=== PATIENT | female | born 1940 | race Caucasian/White ===

== ENCOUNTER 2017-06-26 19:36 | Emergency (ER) | payer MEDICARE, MEDICAID ==
[~2017-06-26] VITALS: Ht 162.6 cm; Wt 65.5 kg
[2017-06-26 19:39] VITALS: Ht 162.6 cm; Wt 65.5 kg
[2017-06-26] MEDS ORDERED: SOD CHLORIDE 0.9% 1,000 ML IV STA (20:55)
[2017-06-26] MEDS ORDERED: LORAZEPAM 2 MG INJ IV ONE (21:00)
[2017-06-26 21:22] LABS: ADD UMIC YES; UR ASCORBIC ACID NEGATIVE (NEGATIVE); UR BILIRUBIN (Dip) NEGATIVE (NEGATIVE); UR BLOOD (Dip) NEGATIVE (NEGATIVE); UR CLARITY CLEAR (CLEAR); UR COLOR STRAW (YELLOW); UR GLUCOSE (Dip) NEGATIVE (NEGATIVE); UR KETONES (Dip) NEGATIVE (NEGATIVE); UR LEUKOCYTE ESTERASE (Dip) 1+ Leu/ul (NEGATIVE); UR NITRITE (Dip) NEGATIVE (NEGATIVE); UR RBC 1 /HPF (0-5); UR SPECIFIC GRAVITY (Dip) 1.005 (1.003-1.030); UR SQUAMOUS EPITHELIAL CELL FEW /HPF (FEW); UR TOTAL PROTEIN (Dip) NEGATIVE (NEGATIVE); UR UROBILINOGEN (Dip) NEGATIVE (NEGATIVE)
--- NOTE | 2017-06-26 22:01 | RADRPT ---
PROCEDURE: XR Chest. CLINICAL INDICATION: Altered level of consciousness TECHNIQUE: AP Portable chest. COMPARISON: No pertinent prior examinations were submitted for comparison. FINDINGS: There is moderate cardiomegaly. Prior median sternotomy is impaired left chest cardiac device and l shawna are noted. The lungs are clear. The osseous structures are unremarkable. IMPRESSION: No acute findings. RPTAT: HIKT .Edson Granados MD, MD Date Time Electronically viewed and signed by .Edson Granados MD, MD on 06/26/2017 22:01 .T/
--- NOTE | 2017-06-26 22:15 | ERD ---
ER Documentation Chief Complaint Date/Time DATE: 06/26/17 TIME: 22:08 Chief Complaint psychiatric evaluation talking non stop, sp fall yesterday L shoulder pain HPI 76-year-old woman brought in by family members for 3 days of agitation and hyper -verbosity. Patient does have a history of manic bipolar disorder and family suspects she is having an episode. She has had difficulty using her walker for the last 3 days and has had constant falls although there has been no head or neck injury. She has had no loss of consciousness, no fevers or chills, no vomiting or diarrhea. Patient denies chest pain or shortness of breath. ROS All systems reviewed and are negative except as per history of present illness. Medications Home Meds Reported Medications Levothyroxine Sodium* (Levothyroxine Sodium*) 25 Mcg Tablet, 25 MCG PO BEFORE BREAKFAST, #30 TAB 06/27/17 Bumetanide* (Bumetanide*) 1 Mg Tablet, 1 MG PO DAILY, TAB 06/27/17 Potassium Chloride* (K-Dur*) 10 Meq Tab.prt.sr, 10 MEQ PO DAILY, TAB 06/27/17 Warfarin Sodium* (Coumadin*) 1 Mg Tablet, 0.5 MG PO DAILY, TAB 06/27/17 Citalopram Hydrobromide* (Citalopram Hydrobromide*) 10 Mg Tablet, 10 MG PO DAILY , #30 TAB 06/27/17 Atenolol* (Atenolol*) 25 Mg Tablet, 25 MG PO BID, #60 TAB 06/27/17 Famotidine* (Famotidine*) 20 Mg Tablet, 20 MG PO BID, #60 TAB 06/27/17 Zolpidem Tartrate* (Zolpidem Tartrate*) 10 Mg Tablet, 10 MG PO QHS Y for INSOMNIA, #30 TAB 06/27/17 Tramadol Hcl* (Ultram*) 50 Mg Tablet, 50 MG PO Q6H Y for PAIN, TAB 06/27/17 Allergies Allergies: Coded Allergies: diclofenac (Unverified Allergy, Unknown, 06/27/17) morphine (Unverified Allergy, Unknown, 06/27/17) PMhx/Soc Bipolar disorder with previous psychiatric hospitalizations, hypertension, arthritis History of Surgery: Yes (left shoulder replacement) Anesthesia Reaction: Yes Hx Neurological Disorder: No Hx Respiratory Disorders: No Hx Cardiac Disorders: Yes Hx Psychiatric Problems: Yes Hx Miscellaneous Medical Probl: No Hx Alcohol Use: No Hx Substance Use: No Hx Tobacco Use: No Smoking Status: Never smoker FmHx Family History: No diabetes Physical Exam Vitals Vital Signs Date Time Temp Pulse Resp B/P Pulse Ox O2 Delivery O2 Flow Rate FiO2 06/27/17 13:09 98.9 68 18 118/69 100 Room Air 06/27/17 08:30 71 18 122/71 100 Room Air 06/27/17 06:30 78 18 118/71 98 Room Air 06/27/17 03:51 75 16 112/75 97 Room Air 06/27/17 00:48 98.8 75 20 122/78 100 Room Air 06/26/17 20:43 98.8 89 20 129/81 100 Room Air 06/26/17 19:39 99.0 75 20 121/65 100 Physical Exam GENERAL: Well-developed, well-nourished, appears dehydrated, afebrile HEENT: Dry mucous membranes, pink conjunctiva, no cervical spine tenderness or step-off deformities, no goiter, no jaundice or icterus, extraocular movements intact without pain. NEURO: Alert and oriented 3, cranial nerves II through XII intact bilaterally, pupils equal round reactive to light, no focal deficits or facial asymmetry, sensation intact distally Strength 5/5 in upper and lower extremities bilaterally CARDIAC: Regular rate and rhythm, no murmurs rubs or gallops LUNGS: Clear bilaterally no wheezing crackles or stridor ABDOMEN: Soft nontender, no guarding, no rigidity, no rebound, no psoas sign no obturator sign. Normoactive bowel sounds SKIN: Warm and dry to touch, no abrasions, contusions, or hematomas, no lacerations, no ecchymosis, no target lesions, and without ulcers EXTREMITIES: No clubbing cyanosis or edema, calves are bilaterally symmetrical, no Homans sign, no popliteal cord sign. Distal pulses equal and bilateral PSYCH: Agitated Result Diagram: 06/26/17221206/26/172212 Results 24 hrs Laboratory Tests Test 06/26/17 20:30 06/26/17 22:13 Urine Color STRAW Urine Clarity CLEAR Urine pH 5.0 Urine Specific [place] 1.005 Urine Ketones NEGATIVEmg/dL Urine Nitrite NEGATIVEmg/dL Urine Bilirubin NEGATIVEmg/dL Urine Urobilinogen NEGATIVEmg/dL Urine Leukocyte Esterase 1+Vandana/ul Urine Microscopic RBC 1/HPF Urine Microscopic WBC 2/HPF Urine Squamous Epithelial Cells FEW/HPF Urine Hemoglobin NEGATIVEmg/dL Urine Glucose NEGATIVEmg/dL Urine Total Protein NEGATIVEmg/dl White Blood Count 7.310^3/ul Red Blood Count 3.8310^6/ul Hemoglobin 11.5g/dl Hematocrit 34.2% Mean Corpuscular Volume 89.3fl Mean Corpuscular Hemoglobin 30.0pg Mean Corpuscular Hemoglobin Concent 33.6g/dl Red Cell Distribution Width 13.6% Platelet Count 81867^3/UL Mean Platelet Volume 10.6fl Neutrophils % 77.3% Lymphocytes % 12.4% Monocytes % 7.4% Eosinophils % 2.3% Basophils % 0.1% Nucleated Red Blood Cells % 0.0/100WBC Neutrophils # 5.710^3/ul Lymphocytes # 0.910^3/ul Monocytes # 0.510^3/ul Eosinophils # 0.210^3/ul Basophils # 0.010^3/ul Nucleated Red Blood Cells # 0.010^3/ul Sodium Level 132mmol/L Potassium Level 4.1mmol/L Chloride Level 96mmol/L Carbon Dioxide Level 26mmol/L Anion Gap 14 Blood Urea Nitrogen 14mg/dl Creatinine 0.75mg/dl Glucose Level 81mg/dl Calcium Level 9.2mg/dl Total Bilirubin 1.1mg/dl Direct Bilirubin 0.00mg/dl Indirect Bilirubin 1.1mg/dl Aspartate Amino Transf (AST/SGOT) 38IU/L Alanine Aminotransferase (ALT/SGPT) 25IU/L Alkaline Phosphatase 184IU/L Troponin I 0.016ng/ml Total Protein 8.1g/dl Albumin 4.6g/dl Globulin 3.50g/dl Albumin/Globulin Ratio 1.31 Lipase 34U/L Salicylates Level < 1.0mg/dl Acetaminophen Level < 10.0ug/ml Ethyl Alcohol Level < 10.0mg/dl Current Medications Medications (Trade) Dose Ordered Sig/Sabrina Route PRN Reason Start Time Stop Time Status Last Admin Dose Admin Lorazepam 1 mg 1 mg ONCE ONCE IV 06/26/17 21:00 06/26/17 21:01 DC 06/26/17 21:00 Sodium Chloride (NS) 1,000 ml @ 1,000 mls/hr Q1H STAT IV 06/26/17 20:55 06/26/17 21:54 DC 06/26/17 20:55 Cephalexin (Keflex) 500 mg ONCE ONCE PO 06/26/17 22:30 06/26/17 22:31 DC 06/26/17 22:30 Haloperidol (Haldol) 5 mg ONCE ONCE IM 06/26/17 23:30 06/26/17 23:53 DC 06/27/17 00:11 Procedures/MDM IV line was established patient was placed on supervisor central supply rhythm strip revealed a sinus rhythm at about 80 bpm. Patient was afebrile. For dehydration I administered 1 L normal saline and venously and she received lorazepam 1 mg IV for agitation. Urine analysis concerning for urinary tract infection I treated her here with cephalexin 500 mg p.o. 1. One AP view of the chest performed, read by me reveals no acute infiltrates, normal mediastinum, sharp costophrenic and cardiac borders, no air under the diaphragm. Otherwise unremarkable chest x-ray. EKG performed, read by me revealed a paced rhythm at 75 bpm, right axis deviation and a bundle branch block at 160 ms with prolonged QT of [address] elevations or depressions noted. Alcohol, Tylenol, aspirin levels were negative. CBC and electrolytes were normal, liver function tests normal, troponin negative. Patient's behavioral symptoms have stabilized while in the department. Patient is medically cleared and appropriate for psychiatric evaluation and work up. No e/o neurologic, toxic, infectious, or metabolic cause. Differential diagnoses considered, included but not limited to acute coronary syndrome, pulmonary embolism, aortic dissection, abdominal aortic aneurysm, sepsis, stroke, meningitis, encephalitis, pneumonia, appendicitis, cholecystitis , bowel obstruction, pyelonephritis, nephrolithiasis, cystitis, as well as metabolic, hematologic, and electrolyte abnormalities. As well as abscess, cellulitis, fractures, and dislocations. Departure Diagnosis: Primary Impression: Bipolar disorder with severe lyric Additional Impressions: Dehydration UTI (urinary tract infection) Urinary tract infection type: acute cystitis Hematuria presence: without hematuria Qualified Code: N30.00 - Acute cystitis without hematuria Condition: Stable LEON ADAMS MD Jun 26, 2017 22:15
[2017-06-26] MEDS ORDERED: CEPHALEXIN 500 MG CAP PO ONE (22:30)
[2017-06-26 22:51] LABS: BASOPHILS % 0.1 % (0.0-2.0); EOSINOPHILS # 0.2 10^3/ul (0.0-0.5); EOSINOPHILS % 2.3 % (0.0-7.0); HEMATOCRIT 34.2 % (37.0-47.0); HEMOGLOBIN 11.5 g/dl (12.0-16.0); LYMPHOCYTES # 0.9 10^3/ul (0.8-2.9); LYMPHOCYTES % 12.4 % (15.0-51.0); MEAN CORPUSCULAR HGB CONC 33.6 g/dl (32.0-37.0); MEAN CORPUSCULAR VOLUME 89.3 fl (82.0-101.0); MEAN PLATELET VOLUME 10.6 fl (7.4-10.4); MONOCYTE # 0.5 10^3/ul (0.3-0.9); MONOCYTES % 7.4 % (0.0-11.0); NEUTROPHIL # 5.7 10^3/ul (1.6-7.5); NEUTROPHILS % 77.3 % (39.0-77.0); PLATELET COUNT 176 10^3/UL (140-415); RED BLOOD COUNT 3.83 10^6/ul (4.20-5.40); RED CELL DISTRIBUTION WIDTH 13.6 % (11.5-14.5); WHITE BLOOD COUNT 7.3 10^3/ul (4.8-10.8)
[2017-06-26 23:28] LABS: ALANINE AMINOTRANSFERASE 25 IU/L (13-69); ALBUMIN 4.6 g/dl (3.3-4.9); ALBUMIN/GLOBULIN RATIO 1.31; ALKALINE PHOSPHATASE 184 IU/L (42-121); ANION GAP 14 (8-16); ASPARTATE AMINO TRANSFERASE 38 IU/L (15-46); BILIRUBIN,INDIRECT 1.1 mg/dl (0-1.1); BILIRUBIN,TOTAL 1.1 mg/dl (0.2-1.3); BLOOD UREA NITROGEN 14 mg/dl (7-20); CALCIUM 9.2 mg/dl (8.4-10.2); CARBON DIOXIDE 26 mmol/L (21-31); CHLORIDE 96 mmol/L (97-110); CREATININE 0.75 mg/dl (0.44-1.00); GLUCOSE 81 mg/dl (70-220); POTASSIUM 4.1 mmol/L (3.5-5.1); SODIUM 132 mmol/L (135-144); TOTAL PROTEIN 8.1 g/dl (6.1-8.1)
[2017-06-26] MEDS ORDERED: HALOPERIDOL 5 MG INJ IM ONE (23:30)
[2017-06-26 23:32] LABS: ACETAMINOPHEN < 10.0 ug/ml (10.0-30.0); SALICYLATE < 1.0 mg/dl (5.0-30.0)
[2017-06-26 23:33] LABS: ETHANOL < 10.0 mg/dl
[2017-06-26 23:37] LABS: TROPONIN-I 0.016 ng/ml (0.00-0.12)
[2017-06-27] MEDS ORDERED: FAMO20TA18 PO (00:31)
[2017-06-27] MEDS ORDERED: ZOLP10TA5 PO (00:31)
[2017-06-27] MEDS ORDERED: WARF1TAB47 PO (00:31)
[2017-06-27] MEDS ORDERED: TRAM-40 PO (00:31)
[2017-06-27] MEDS ORDERED: CITA10TA84 PO (00:31)
[2017-06-27] MEDS ORDERED: BUME1TAB18 PO (00:31)
[2017-06-27] MEDS ORDERED: ATEN-51 PO (00:31)
[2017-06-27] MEDS ORDERED: LEVO25TA53 PO (00:31)
[2017-06-27] MEDS ORDERED: POTA10TA37 PO (00:31)
--- NOTE | 2017-06-27 12:40 | EN ---
Date/Time of Note Date/Time of Note DATE: 06/27/17 TIME: 12:39 Event Note Medicine Medicine Event Note Patient was evaluated by telemetry psych. The patient has been cleared for discharge home with the family. The family states they are going to take the patient to a palpation or try to get him into another inpatient facility. Patient is cleared for discharge home by psychiatry LM MEZA DO Jun 27, 2017 12:40
[2017-06-27 13:09] VITALS: BP 118/69; PULSE 68; RESP 18; TEMP 98.9
== END 2017-06-27 13:10 | disposition home or self-care (01) ==
LOC: E/R 19:36
DX: F31.9 Bipolar disorder, unspecified (principal); N30.00 Acute cystitis without hematuria; E86.0 Dehydration; I10 Essential (primary) hypertension; Z79.01 Long term (current) use of anticoagulants; Z96.612 Presence of left artificial shoulder joint
CPT/HCPCS: 36415; 71010; 80053; 80306; 81001; 83690; 84484; 85025; 87086; 96361; 96372; 96374; 99285; J1630; J2060; J7030; 93005